=== PATIENT | female | born 1955 | race Caucasian/White ===

== ENCOUNTER 2017-02-22 09:24 | Inpatient (IN) | payer BC ==
[~2017-02-22] VITALS: Ht 172.7 cm; Wt 57.2 kg
[2017-02-22] MEDS ORDERED: ZOLP5TAB (09:30)
[2017-02-22] MEDS ORDERED: MEDR2.5T2 (09:30)
[2017-02-22] MEDS ORDERED: ESTR1TAB (09:30)
--- NOTE | 2017-02-22 11:26 | REP ---
CT Head without contrast HISTORY: Dizziness COMPARISON: None There is no intraparenchymal hemorrhage, acute infarct, mass or midline shift. The ventricular system is normal in appearance. The cortical sulci are dilated consistent with minimal volume loss. There is no extra cerebral collection. There is no fracture. The visualized sinuses are clear. IMPRESSION: Minimal volume loss. Signed by Eddie Saul MD 02/22/2017 11:18 A
[2017-02-22 12:23] LABS: BASO % 0.5 % (0.0-1.0); EOS % 0.6 % (0.0-3.0); LARGE UNSTAINED CELL # 0.1 K/mm3 (0.0-0.4); LARGE UNSTAINED CELL % 2.6 % (0.0-4.0); LYMPH % 22.3 % (24.0-44.0); MEAN CORPUSCULAR HGB CONC 34.5 g/dl (32.0-36.5); MEAN CORPUSCULAR VOLUME 92.8 fl (80.0-96.0); MONO # 0.3 K/mm3 (0.0-0.8); MONO % 6.4 % (0.0-5.0); NEUTROPHILS # 2.9 K/mm3 (1.8-7.7); NEUTROPHILS % 67.6 % (36.0-66.0); PLATELET COUNT, AUTOMATED 236 k/mm3 (150-450); RED CELL DISTRIBUTION WIDTH 12.7 % (11.5-14.5); WHITE BLOOD COUNT 4.4 K/mm3 (4.0-10.0)
--- NOTE | 2017-02-22 12:29 | REP ---
Chest one-view HISTORY: Infarction Comparison: None The lungs are clear. The heart is normal in size. The pulmonary vasculature is normal in appearance. Impression: No acute disease. Signed by Eddie Saul MD 02/22/2017 12:20 P
[2017-02-22 12:31] LABS: ANION GAP 5 MEQ/L (8-16); BLOOD UREA NITROGEN 9 MG/DL (7-18); CALCIUM LEVEL 9.2 MG/DL (8.5-10.1); CARBON DIOXIDE LEVEL 29 MEQ/L (21-32); CHLORIDE LEVEL 105 MEQ/L (98-107); CREATININE FOR GFR 0.99 MG/DL (0.55-1.02); GLOMERULAR FILTRATION RATE > 60.0 (>51); GLUCOSE, FASTING 94 MG/DL (70-105); SODIUM LEVEL 139 MEQ/L (136-145)
[2017-02-22 13:04] LABS: ERYTHROCYTE SEDIMENTATION RATE 4 mm/hr (0-30)
[2017-02-22] MEDS ORDERED: MEDR2.5T2 PO (16:49)
[2017-02-22] MEDS ORDERED: ESTR1TAB PO (16:49)
[2017-02-22] MEDS ORDERED: AMBI10TA PO (16:49)
[2017-02-22] MEDS: **hydrALAZINE HCL** 25 MG TAB PO SCH (18:00)
[2017-02-22 18:10] LABS: CHOLESTEROL LEVEL 215 MG/DL (<200); TRIGLYCERIDES LEVEL 77 MG/DL (<150)
--- NOTE | 2017-02-22 18:43 | HPEPDOC ---
General Date of Admission Feb 22, 2017 at 16:49 Chief Complaint The patient is a 61-year-old female admitted with a reason for visit of TIA. Source: Patient Exam Limitations: No limitations Timing/Duration: 4-6 hours Severity: Moderate History of Present Illness Ms. Melvin is a 61-year-old female who appears much younger than her stated age with no significant past medical history who presented with the chief complaint of double vision and lightheadedness that began this morning. The patient states that when she got into her car to start driving around 8 AM to work that she noticed her vision in both eyes gradually becoming double, the patient states that this increased in severity and that she drove to work with complete double vision in both eyes. She states that her vision restored to normal within 30 minutes. The patient states that when she arrived at work 30-45 minutes later she slipped out of her car and acutely became very lightheaded and dizzy. The patient denied loss of consciousness or passing out. She stated that at this point time she called her primary care doctor, Dr. Walker who recommended her come to the emergency department. The patient denies experiencing symptoms like this in the past. She denies any areas or extremities of her body that have been acutely numb, paralyzed or week. The patient did state that when she phoned her to tell him she was coming to the emergency department he noted her speech to be slurred. Patient states she is very active she goes to the gym area 5 times per week and eats very healthy, she has never been hospitalized prior to this. The only medications she takes are hormone replacement therapy for menopause and Ambien at night to sleep, states she sometimes also will take a stool softener for constipation. Patient denied experiencing headache, chest pain, palpitations, shortness of breath or cough. She denies history of fever or chills or muscle aches. She does admit to a "knot" in her stomach that has been present for the past couple weeks, she thinks this is due to her constipation as she not had a bowel movement in the past 2 days. She has never had a history of stroke or heart attack in the past. She states she sees her primary care doctor regularly for checkups and has always been very healthy. 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 Review of Symptoms Constitutional: Reports: Malaise, Denies: Chills, Fever Eyes: Reports: Vision change, Denies: Pain, Conjunctivae inflammation, Eyelid inflammation ENT: Denies: Head Aches Skin: Denies: Rash, Lesions Pulmonary: Denies: Dyspnea, Cough, Pleuritic Chest Pain Cardiovascular: Reports: Lt Headedness, Denies: Chest Pain, Palpitations, Orthopnea, Edema Gastrointestinal: Reports: Constipation, Denies: Nausea, Vomiting, Abdominal Pain, Diarrhea Genitourinary: Denies: Dysuria Musculoskeletal: Denies: Neck Pain Neurological: Reports: Weakness Psych: Reports: Mood Normal Physical Examination General Exam: Positive: Alert, Cooperative, No Acute Distress Eye Exam: Positive: Conjunctiva & lids normal, EOMI, Negative: Sclera icteric, Ptosis ENT Exam: Positive: Atraumatic, Nares Patent Neck Exam: Positive: Supple Chest Exam: Positive: Clear to auscultation, Normal air movement, Negative: Rales, Rhonchi, Wheezing Heart Exam: Positive: Rate Normal, Normal S1, Normal S2, Negative: Gallops, Murmurs Abdomen Exam: Positive: Normal bowel sounds, Soft, Tenderness (some mild tenderness to palpitation in left upper quadrant), Negative: BS Hyperactive, BS Hypoactive Extremity Exam: Positive: Normal pulses, Negative: Clubbing, Cyanosis, Edema Skin Exam: Positive: Nl turgor and temperature Neuro Exam: Positive: Normal Speech, Strength at 5/5 X4 ext, Normal Tone, Sensation Intact, Cranial Nerves 3-12 NL Psych Exam: Positive: Mental status NL Vital Signs Vital Signs Date Time Temp Pulse Resp B/P (MAP) Pulse Ox O2 Delivery O2 Flow Rate FiO2 02/22/17 16:53 174/79 (110) 02/22/17 16:40 64 18 97 4/27/17 11:57 99.3 Room Air Laboratory Data Labs 24H Laboratory Tests 2 02/22/17 11:52: White Blood Count 4.4, Red Blood Count 4.48, Hemoglobin 14.3, Hematocrit 41.6, Mean Corpuscular Volume 92.8, Mean Corpuscular Hemoglobin 32.0, Mean Corpuscular Hemoglobin Concent 34.5, Red Cell Distribution Width 12.7, Platelet Count 236, Neutrophils (%) (Auto) 67.6H, Lymphocytes (%) (Auto) 22.3L, Monocytes (%) (Auto) 6.4H, Eosinophils (%) (Auto) 0.6, Basophils (%) (Auto) 0.5 , Neutrophils # (Auto) 2.9, Lymphocytes # (Auto) 1.0L, Monocytes # (Auto) 0.3, Eosinophils # (Auto) 0.0, Basophils # (Auto) 0.0, Large Unclassified Cells % 2.6 , Large Unclassified Cells # 0.1, Erythrocyte Sedimentation Rate 4, Anion Gap 5L , Glomerular Filtration Rate > 60.0, Blood Urea Nitrogen 9, Creatinine 0.99, Sodium Level 139, Potassium Level 4.0, Chloride Level 105, Carbon Dioxide Level 29, Calcium Level 9.2, Total Creatine Kinase 118, Creatine Kinase MB 1.0, Creatine Kinase MB Relative Index 0.84, Troponin I < 0.02, C-Reactive Protein, Quantitative < 0.30, Triglycerides Level 77, LDL Cholesterol 119.6H, Total Cholesterol 215H, Non-HDL Cholesterol (LDL + VLDL) 135, Total HDL Cholesterol 80 , Cholesterol/HDL Ratio 2.687 02/22/17 12:01: Bedside Glucose (Misc Panel) 83 CBC/BMP Laboratory Tests 02/22/17 11:52 Red Blood Count 4.48, Mean Corpuscular Volume 92.8, Mean Corpuscular Hemoglobin 32.0, Mean Corpuscular Hemoglobin Concent 34.5, Red Cell Distribution Width 12.7 , Neutrophils (%) (Auto) 67.6 H, Lymphocytes (%) (Auto) 22.3 L, Monocytes (%) ( Auto) 6.4 H, Eosinophils (%) (Auto) 0.6, Basophils (%) (Auto) 0.5, Neutrophils # (Auto) 2.9, Lymphocytes # (Auto) 1.0 L, Monocytes # (Auto) 0.3, Eosinophils # (Auto) 0.0, Basophils # (Auto) 0.0, Calcium Level 9.2, Total Creatine Kinase 118 Problems (1) Double vision Status: Acute Response to Treatment: Stable Problem Text: The patient states that her vision is completely restored Will perform hypercoagulable workup Have ordered echo and carotid ultrasound Lipid panel pending Begin aspirin and Lipitor therapy Begin hydralazine for systolic blood pressure over 180 CT scan emergency department negative for ischemic focus Will complete MRI and MRA Continue to monitor (2) TIA (transient ischemic attack) Status: Acute Response to Treatment: Stable Problem Text: The patient states that her vision is completely restored Will perform hypercoagulable workup Have ordered echo and carotid ultrasound Lipid panel pending Begin aspirin and Lipitor therapy Begin hydralazine for systolic blood pressure over 180 CT scan emergency department negative for ischemic focus Will complete MRI and MRA Continue to monitor (3) Constipation Status: Chronic Response to Treatment: Stable Problem Text: Schedule docusate (4) Hypertension Status: Acute Response to Treatment: Stable Problem Text: Patient states that she normally has blood pressure that is normal in the 120s systolic range Patient was noted to have elevated blood pressure 184/88 in the emergency Department will schedule hydralazine 25 every 6 hours with the parameters only to be given if systolic blood pressure is over 180 Continue to monitor (5) DVT prophylaxis Response to Treatment: Stable Problem Text: SCD teds (6) Lightheadedness Plan / VTE VTE Prophylaxis Ordered?: Yes GME ATTESTATION GME ATTESTATION My preceptor for this patient encounter was physically present in the building during the encounter and was fully available. As needed, all aspects of the patient interview, examination, medical decision making process, and medical care plan development were reviewed and approved by the preceptor. Preceptor is aware and concurs with the plan as stated in the body of this note and will attest to such by his/her cosignature. PAL KWAN DO Feb 22, 2017 18:43
--- NOTE | 2017-02-22 19:10 | REPUSA ---
MRI of the brain Clinical history: vision problems. Technique: Multiecho multiplanar MRI images of the brain were obtained before and after administrati on of intravenous gadolinium contrast. Diffusion weighted images with ADC mapping was also obtained. Findings: The ventricles and sulci are symmetric bilaterally. The brain parenchyma demonstrates uniform and nor mal signal on all sequences. There is no midline shift, mass effect, or extra-axial fluid collection. The midline intracranial structures do not demonstrate any gross abnormalities. The cervical cranial junction is intact. The orbits are unremarkable. The visualized paranasal sinuses and mastoid air ce lls are clear. The osseous structures and superficial soft tissues are unremarkable. The vascular str uctures demonstrate appropriate flow voids. Following contrast administration, the vascular structure s enhancing appropriately. No abnormal areas of enhancement are appreciated. Impression: Normal MRI of the Brain.
--- NOTE | 2017-02-22 20:50 | REP ---
CAROTID ULTRASOUND: Real-time ultrasound evaluation and duplex Doppler interrogation of the extracranial carotid vasculature is performed. There is mild plaquing and narrowing in both carotid bulbs extending into the internal and external carotid arteries. Luminal narrowing is less than 50%. There is no evidence of hemodynamically significant stenosis of either internal carotid artery. Normal flow velocities are seen. The vertebral arteries demonstrate normal direction of flow. RIGHT LEFT Peak systolic velocity ICA 113.6 cm/s 80.7 cm/s End diastolic velocity ICA 34.5 cm/s 29.1 cm/s Peak systolic velocity CCA 82.8 cm/s 76.3 cm/s Peak systolic velocity ECA 80.9 cm/s 52.1 cm/s ICA/CCA ratio 1.37 1.06 IMPRESSION: Bilateral luminal narrowing of the internal carotid arteries less than 50%. No evidence of hemodynamically significant stenosis. Signed by Valentin Lopez MD 02/22/2017 07:38 P
[2017-02-22] MEDS ORDERED: zolPIDEM TARTRATE 5 MG TAB PO SCH (21:00)
[2017-02-23 03:00] VITALS: BP 107/75
[2017-02-23 04:00] VITALS: BP 107/55
[2017-02-23] MEDS: **hydrALAZINE HCL** 25 MG TAB PO SCH ×4 (05:44→18:00)
[2017-02-23 07:25] LABS: BASO % 0.3 % (0.0-1.0); EOS # 0.1 K/mm3 (0.0-0.50); EOS % 3.6 % (0.0-3.0); LARGE UNSTAINED CELL # 0.1 K/mm3 (0.0-0.4); LARGE UNSTAINED CELL % 1.5 % (0.0-4.0); LYMPH # 1.2 K/mm3 (1.5-4.5); LYMPH % 29.9 % (24.0-44.0); MEAN CORPUSCULAR HEMOGLOBIN 32.1 pg (27.0-33.0); MEAN CORPUSCULAR VOLUME 91.7 fl (80.0-96.0); MONO # 0.3 K/mm3 (0.0-0.8); MONO % 6.7 % (0.0-5.0); NEUTROPHILS # 2.3 K/mm3 (1.8-7.7); PLATELET COUNT, AUTOMATED 224 k/mm3 (150-450); RED CELL DISTRIBUTION WIDTH 12.6 % (11.5-14.5); WHITE BLOOD COUNT 3.9 K/mm3 (4.0-10.0)
[2017-02-23 07:47] LABS: INR 1.05
[2017-02-23 07:48] LABS: ANION GAP 9 MEQ/L (8-16); BLOOD UREA NITROGEN 9 MG/DL (7-18); CALCIUM LEVEL 8.5 MG/DL (8.5-10.1); CARBON DIOXIDE LEVEL 24 MEQ/L (21-32); CHLORIDE LEVEL 108 MEQ/L (98-107); CREATININE FOR GFR 0.95 MG/DL (0.55-1.02); GLOMERULAR FILTRATION RATE > 60.0 (>51); GLUCOSE, FASTING 95 MG/DL (70-105); POTASSIUM SERUM 3.9 MEQ/L (3.5-5.1); SODIUM LEVEL 141 MEQ/L (136-145)
[2017-02-23 08:00] VITALS: BP 119/83
--- NOTE | 2017-02-23 09:58 | IPNPDOC ---
Subjective Date Seen The patient was seen on 02/23/17. Subjective Chief Complaint/HPI The patient is a 61-year-old female admitted with a reason for visit of TIA. General: Denies: Chills Constitutional: Denies: Chills Eyes: Denies: Pain, Vision change, Conjunctivae inflammation, Eyelid inflammation Skin: Denies: Rash Pulmonary: Denies: Dyspnea, Cough Cardiovascular: Denies: Chest Pain, Palpitations Gastrointestinal: Denies: Nausea, Vomiting, Abdominal Pain Neurological: Denies: Weakness Psych: Reports: Mood Normal Objective Physical Examination General Exam: Positive: Alert, Cooperative, No Acute Distress Eye Exam: Positive: Conjunctiva & lids normal, EOMI, Negative: Sclera icteric, Ptosis ENT Exam: Positive: Atraumatic, Nares Patent Neck Exam: Positive: Supple Chest Exam: Positive: Clear to auscultation, Normal air movement, Negative: Rales, Rhonchi, Wheezing Heart Exam: Positive: Rate Normal, Normal S1, Normal S2, Negative: Gallops, Murmurs Abdomen Exam: Positive: Normal bowel sounds, Soft, Negative: BS Hyperactive, BS Hypoactive, Tenderness (some mild tenderness to palpitation in left upper quadrant) Extremity Exam: Positive: Normal pulses, Negative: Clubbing, Cyanosis, Edema Skin Exam: Positive: Nl turgor and temperature Neuro Exam: Positive: Normal Speech, Strength at 5/5 X4 ext, Normal Tone, Sensation Intact, Cranial Nerves 3-12 NL Psych Exam: Positive: Mental status NL Assessment /Plan Problems (1) Double vision Status: Acute Response to Treatment: Stable Problem Text: The patient states that her vision is completely restored hypercoagulable lab still pending Carotid u/s no hemodynamically significant stenosis Echo ordered Lipid panel-LDL 119 Begin aspirin and Lipitor therapy Begin hydralazine for systolic blood pressure over 180 CT scan & MRI emergency department negative for ischemic focus MRA pending Continue to monitor (2) TIA (transient ischemic attack) Status: Acute Response to Treatment: Stable Problem Text: The patient states that her vision is completely restored neurology consulted-appreciate their recommendations Will perform hypercoagulable workup Have ordered echo and carotid ultrasound Lipid panel pending Begin aspirin and Lipitor therapy Begin hydralazine for systolic blood pressure over 180 CT scan emergency department negative for ischemic focus Will complete MRI and MRA Continue to monitor (3) Lightheadedness Status: Acute Response to Treatment: Stable Problem Text: patient states she feels well we will continue to monitor (4) Constipation Status: Chronic Response to Treatment: Stable Problem Text: Schedule docusate (5) Hypertension Status: Acute Response to Treatment: Stable Problem Text: 119/70, has come down to normal pressures since last evening Patient states that she normally has blood pressure that is normal in the 120s systolic range Patient was noted to have elevated blood pressure 184/88 in the emergency Department will keep hydralazine 25 every 6 hours with the parameters only to be given if systolic blood pressure is over 180 Continue to monitor (6) DVT prophylaxis Response to Treatment: Stable Problem Text: SCD teds Plan/VTE VTE Prophylaxis Ordered?: Yes VS, I&O, 24H, Fishbone Vital Signs/I&O Vital Signs Date Time Temp Pulse Resp B/P (MAP) Pulse Ox O2 Delivery O2 Flow Rate FiO2 02/23/17 06:30 Room Air 02/23/17 05:44 119/70 02/23/17 04:00 98.7 67 20 99 I&O- Last 24 Hours up to 6 AM 02/23/17 06:00 Intake Total 240 ml Output Total 0 ml Balance 240 ml Laboratory Data 24H LABS Laboratory Tests 2 02/22/17 11:52: White Blood Count 4.4, Red Blood Count 4.48, Hemoglobin 14.3, Hematocrit 41.6, Mean Corpuscular Volume 92.8, Mean Corpuscular Hemoglobin 32.0, Mean Corpuscular Hemoglobin Concent 34.5, Red Cell Distribution Width 12.7, Platelet Count 236, Neutrophils (%) (Auto) 67.6H, Lymphocytes (%) (Auto) 22.3L, Monocytes (%) (Auto) 6.4H, Eosinophils (%) (Auto) 0.6, Basophils (%) (Auto) 0.5 , Neutrophils # (Auto) 2.9, Lymphocytes # (Auto) 1.0L, Monocytes # (Auto) 0.3, Eosinophils # (Auto) 0.0, Basophils # (Auto) 0.0, Large Unclassified Cells % 2.6 , Large Unclassified Cells # 0.1, Erythrocyte Sedimentation Rate 4, Anion Gap 5L , Glomerular Filtration Rate > 60.0, Blood Urea Nitrogen 9, Creatinine 0.99, Sodium Level 139, Potassium Level 4.0, Chloride Level 105, Carbon Dioxide Level 29, Calcium Level 9.2, Total Creatine Kinase 118, Creatine Kinase MB 1.0, Creatine Kinase MB Relative Index 0.84, Troponin I < 0.02, C-Reactive Protein, Quantitative < 0.30, Triglycerides Level 77, LDL Cholesterol 119.6H, Total Cholesterol 215H, Non-HDL Cholesterol (LDL + VLDL) 135, Total HDL Cholesterol 80 , Cholesterol/HDL Ratio 2.687 02/22/17 12:01: Bedside Glucose (Misc Panel) 83 02/23/17 07:08: White Blood Count 3.9L, Red Blood Count 4.27, Hemoglobin 13.7, Hematocrit 39.2, Mean Corpuscular Volume 91.7, Mean Corpuscular Hemoglobin 32.1, Mean Corpuscular Hemoglobin Concent 35.0, Red Cell Distribution Width 12.6, Platelet Count 224, Neutrophils (%) (Auto) 58.0, Lymphocytes (%) (Auto) 29.9, Monocytes ( %) (Auto) 6.7H, Eosinophils (%) (Auto) 3.6H, Basophils (%) (Auto) 0.3, Neutrophils # (Auto) 2.3, Lymphocytes # (Auto) 1.2L, Monocytes # (Auto) 0.3, Eosinophils # (Auto) 0.1, Basophils # (Auto) 0.0, Large Unclassified Cells % 1.5 , Large Unclassified Cells # 0.1, Anion Gap 9, Glomerular Filtration Rate > 60.0 , Blood Urea Nitrogen 9, Creatinine 0.95, Sodium Level 141, Potassium Level 3.9 , Chloride Level 108H, Carbon Dioxide Level 24, Calcium Level 8.5 02/23/17 07:09: Prothrombin Time 13.8, Prothromb Time International Ratio 1.05, Activated Partial Thromboplast Time 32.0 CBC/BMP Laboratory Tests 02/22/17 11:52 Red Blood Count 4.48, Mean Corpuscular Volume 92.8, Mean Corpuscular Hemoglobin 32.0, Mean Corpuscular Hemoglobin Concent 34.5, Red Cell Distribution Width 12.7 , Neutrophils (%) (Auto) 67.6 H, Lymphocytes (%) (Auto) 22.3 L, Monocytes (%) ( Auto) 6.4 H, Eosinophils (%) (Auto) 0.6, Basophils (%) (Auto) 0.5, Neutrophils # (Auto) 2.9, Lymphocytes # (Auto) 1.0 L, Monocytes # (Auto) 0.3, Eosinophils # (Auto) 0.0, Basophils # (Auto) 0.0, Calcium Level 9.2, Total Creatine Kinase 118 02/23/17 07:08 Red Blood Count 4.27, Mean Corpuscular Volume 91.7, Mean Corpuscular Hemoglobin 32.1, Mean Corpuscular Hemoglobin Concent 35.0, Red Cell Distribution Width 12.6 , Neutrophils (%) (Auto) 58.0, Lymphocytes (%) (Auto) 29.9, Monocytes (%) (Auto ) 6.7 H, Eosinophils (%) (Auto) 3.6 H, Basophils (%) (Auto) 0.3, Neutrophils # ( Auto) 2.3, Lymphocytes # (Auto) 1.2 L, Monocytes # (Auto) 0.3, Eosinophils # ( Auto) 0.1, Basophils # (Auto) 0.0, Calcium Level 8.5 GME ATTESTATION GME ATTESTATION My preceptor for this patient encounter was physically present in the building during the encounter and was fully available. As needed, all aspects of the patient interview, examination, medical decision making process, and medical care plan development were reviewed and approved by the preceptor. Preceptor is aware and concurs with the plan as stated in the body of this note and will attest to such by his/her cosignature. ATTENDING NOTE I have both independently examined this patient as well as reviewed the note. I have discussed in detail with the resident the findings and plan of treatment as documented in the residents note. I will continue to follow the patient and offer further guidance to the patients care as necessary during this hospital stay. PAL Ortega MD, DO Feb 23, 2017 09:57 DARBY CONTRERAS MD Feb 24, 2017 07:31
--- NOTE | 2017-02-23 10:04 | REP ---
MRA BRAIN WITHOUT CONTRAST: HISTORY: TIAs 3D [id number] Mr angiography was performed at the level of the [place]. There is no aneurysm, arteriovenous malformation or atherosclerotic lesion. 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 The major intracranial vessels are patent. The right vertebral artery appears to terminate in the right posterior inferior cerebellar artery. The left vertebral artery is dominant. IMPRESSION: Normal MRA brain. Signed by Eddie Saul MD 02/23/2017 10:07 A
[2017-02-23] MEDS: SENOKOT S TAB PO SCH (10:36)
[2017-02-23] MEDS: HEPARIN SOD (PORCINE) 5000 UNITS/ML VIAL SQ SCH ×2 (10:36→21:45)
[2017-02-23] MEDS: ATORVASTATIN 20 MG TAB PO SCH (10:36)
[2017-02-23] MEDS: ASPIRIN 81 MG CHEW TABLET PO SCH (10:37)
[2017-02-23 12:00] VITALS: BP 144/79
[2017-02-23 16:00] VITALS: BP 119/59
[2017-02-23 20:00] VITALS: BP 151/74
[2017-02-23] MEDS ORDERED: zolPIDEM TARTRATE 5 MG TAB PO SCH (21:00)
[2017-02-24] VITALS: BP 145/73
[2017-02-24 04:00] VITALS: BP 124/52
[2017-02-24 06:00] VITALS: BP 122/69
[2017-02-24] MEDS: **hydrALAZINE HCL** 25 MG TAB PO SCH ×2 (06:00)
[2017-02-24 07:37] LABS: BASO % 0.5 % (0.0-1.0); EOS # 0.1 K/mm3 (0.0-0.50); LARGE UNSTAINED CELL # 0.1 K/mm3 (0.0-0.4); LYMPH # 1.4 K/mm3 (1.5-4.5); LYMPH % 31.9 % (24.0-44.0); MEAN CORPUSCULAR HEMOGLOBIN 30.4 pg (27.0-33.0); MEAN CORPUSCULAR HGB CONC 32.9 g/dl (32.0-36.5); MEAN CORPUSCULAR VOLUME 92.4 fl (80.0-96.0); MONO # 0.3 K/mm3 (0.0-0.8); MONO % 6.7 % (0.0-5.0); NEUTROPHILS # 2.2 K/mm3 (1.8-7.7); PLATELET COUNT, AUTOMATED 232 k/mm3 (150-450); RED CELL DISTRIBUTION WIDTH 12.8 % (11.5-14.5)
[2017-02-24 07:56] LABS: ANION GAP 6 MEQ/L (8-16); BLOOD UREA NITROGEN 12 MG/DL (7-18); CALCIUM LEVEL 8.5 MG/DL (8.5-10.1); CARBON DIOXIDE LEVEL 27 MEQ/L (21-32); CHLORIDE LEVEL 106 MEQ/L (98-107); CREATININE FOR GFR 0.96 MG/DL (0.55-1.02); GLOMERULAR FILTRATION RATE > 60.0 (>51); GLUCOSE, FASTING 91 MG/DL (70-105); SODIUM LEVEL 139 MEQ/L (136-145)
[2017-02-24 08:00] VITALS: BP 138/75
[2017-02-24] MEDS: HEPARIN SOD (PORCINE) 5000 UNITS/ML VIAL SQ SCH (08:21)
[2017-02-24] MEDS: SENOKOT S TAB PO SCH (08:22)
[2017-02-24] MEDS: ATORVASTATIN 20 MG TAB PO SCH (08:22)
[2017-02-24] MEDS: ASPIRIN 81 MG CHEW TABLET PO SCH (08:22)
--- NOTE | 2017-02-24 08:29 | ECGEPIP ---
Stationary ECG Study [facility] - ED Test Date: 2017-02-22 Pat Name: OVI TEIXEIRA Department: Room: - Gender: F [employer]: [employer] : 1955 Requested By: Dewayne Carmona Order Number: [id number] Reading MD: Elayne Butts Measurements Intervals [place] Rate: 58 P: 48 [place]: 158 QRS: 15 QRSD: 103 T: 56 QT: 428 QTc: 423 Interpretive Statements SINUS BRADYCARDIA DELAYED R PROGRESSION SIMILAR 07/22/13 Electronically Signed On 02-24-2017 8:29:27 EDT by Elayne Butts
[2017-02-24] MEDS ORDERED: ASPI81TA PO (10:38)
[2017-02-24] MEDS ORDERED: ATOR1TAB21 PO (10:38)
[2017-02-24] MEDS ORDERED: ATOR40TA PO (10:55)
--- NOTE | 2017-02-24 13:45 | DS.PDOC ---
Discharge Summary General Date of Admission Feb 22, 2017 at 16:49 Date of Discharge 02-24-17 Discharge Summary PROCEDURES PERFORMED DURING STAY: None ADMITTING DIAGNOSES: 1. Double vision 2. TIA 3. Constipation 4. Hypertension DISCHARGE DIAGNOSES: 1. TIA 2. Constipation 3. Hypertension COMPLICATIONS/CHIEF COMPLAINT: Blurred vision, dizziness. TIA. HISTORY OF PRESENT ILLNESS: Ms. Melvin is a 61-year-old female who appears much younger than her stated age with no significant past medical history who presented to the ED with the chief complaint of double vision, slurred speech and lightheadedness that began the morning of 02-22-17. HOSPITAL COURSE: During the course of the hospital stay the patient received numerous imaging studies as part of TIA, hypercoagulable workup. The patient received head CT, brain MRI, vascular carotid duplex ultrasound, brain MRA and chest x-ray. All of the aforementioned imaging studies were benign. The patient was treated with aspirin, atorvastatin, heparin, Colace for intermittent constipation and Ambien to help her sleep. Her blood pressure was noted to be elevated upon presentation reaching 175/78, she stated she has never had high blood pressure and throughout the course of the stay and began to normalize back into the 120s over 60s range, on the day of discharge it was 138/75. Hydralazine 25 mg every 6 hours was scheduled but only to be given if systolic blood pressure was greater than 180. Lipid panel revealed LDL cholesterol 119.6 and total cholesterol 215. She also received echocardiogram and after speaking to Dr. Juan who read it on the day of discharge, preliminary report was normal, recommend that primary care doctor follow-up with final report. On the day of discharge the patient reported no further episodes of blurred vision or lightheadedness since presentation, she felt great and was happy to be going home. She understood that she should follow with neurology and primary care doctor within 1 week of discharge and if she had any re-occurence of her symptoms to return to ED. She verbalizied understanding and had no further questions. DISCHARGE MEDICATIONS: Please see below. ALLERGIES: Please see below. PHYSICAL EXAMINATION ON DISCHARGE: VITAL SIGNS: Please see below. GENERAL: Comfortable laying in bed at 45 incline, pleasant, conversant, in no acute distress HEENT: NCAT, EOMI, nares patent bilaterally, moist mucous membranes. NECK: Supple CARDIOVASCULAR EXAMINATION: Normal S1, S2, no murmurs, rubs, gallops appreciated. NSR. RESPIRATORY EXAMINATION: Good air expansion and effort bilaterally, no wheezing , rhonchi, rales, crackles appreciated. CTA bilaterally ABDOMINAL EXAMINATION: Soft, nondistended, no rebound rigidity or guarding appreciated. NABS 4. No organomegaly. EXTREMITIES: Nails without pitting or clubbing, no edema, cyanosis appreciated SKIN: Intact NEUROLOGICAL EXAMINATION: Cranial nerve II through XII intact, sensation and strength preserved in upper and lower extremities, no focal deficits appreciated. PSYCHIATRIC EXAMINATION: Normal affect and appropriate demeanor LABORATORY DATA: Please see below. IMAGIN02/22/2017 chest x-ray Impression: No acute disease. 02/22/[address] There is no intraparenchymal hemorrhage, acute infarct, mass or midline shift. The ventricular system is normal in appearance. The cortical sulci are dilated consistent with minimal volume loss. There is no extra cerebral collection. There is no fracture. The visualized sinuses are clear. IMPRESSION: Minimal volume loss. 02/22/2017 brain MRI Technique: Multiecho multiplanar MRI images of the brain were obtained before and after administration of intravenous gadolinium contrast. Diffusion weighted images with ADC mapping was also obtained. Findings: The ventricles and sulci are symmetric bilaterally. The brain parenchyma demonstrates uniform and normal signal on all sequences. There is no midline shift, mass effect, or extra-axial fluid collection. The midline intracranial structures do not demonstrate any gross abnormalities. The cervical cranial junction is intact. The orbits are unremarkable. The visualized paranasal sinuses and mastoid air cells are clear. The osseous structures and superficial soft tissues are unremarkable. The vascular structures demonstrate appropriate flow voids. Following contrast administration, the vascular structures enhancing appropriately. No abnormal areas of enhancement are appreciated. Impression: Normal MRI of the Brain. 02/22/2017 carotid ultrasound IMPRESSION: Bilateral luminal narrowing of the internal carotid arteries less than 50%. No evidence of hemodynamically significant stenosis. 02/15/2017 brain MRA There is no aneurysm, arteriovenous malformation or atherosclerotic lesion. 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 The major intracranial vessels are patent. The right vertebral artery appears to terminate in the right posterior inferior cerebellar artery. The left vertebral artery is dominant. IMPRESSION: Normal MRA brain. PROGNOSIS: Stable ACTIVITY: As tolerated DIET: Heart healthy DISCHARGE PLAN: Home, follow up with primary care doctor and neurology within 5- 7 days of discharge DISPOSITION: 01 Home, Self-Care. DISCHARGE INSTRUCTIONS: 1. Follow up with PCP within 5-7 days of discharge 2. Follow-up with neurology within 5-7 days of discharge ITEMS TO FOLLOWUP ON ON OUTPATIENT: 1. Follow up with PCP within 5-7 days of discharge 2. Follow-up with neurology within 5-7 days of discharge DISCHARGE CONDITION: Stable TIME SPENT ON DISCHARGE: Greater than 20 minutes. Vital Signs/I&Os Vital Signs Date Time Temp Pulse Resp B/P (MAP) Pulse Ox O2 Delivery O2 Flow Rate FiO2 02/24/17 08:00 97.6 63 18 138/75 (96) 99 Room Air I&O- Last 24 Hours up to 6 AM 02/24/17 06:00 Intake Total 780 ml Output Total 0 ml Balance 780 ml Laboratory Data Labs 24H Laboratory Tests 2 02/24/17 07:21: White Blood Count 4.0, Red Blood Count 4.73, Hemoglobin 14.4, Hematocrit 43.7, Mean Corpuscular Volume 92.4, Mean Corpuscular Hemoglobin 30.4, Mean Corpuscular Hemoglobin Concent 32.9, Red Cell Distribution Width 12.8, Platelet Count 232, Neutrophils (%) (Auto) 56.0, Lymphocytes (%) (Auto) 31.9, Monocytes ( %) (Auto) 6.7H, Eosinophils (%) (Auto) 3.0, Basophils (%) (Auto) 0.5, Neutrophils # (Auto) 2.2, Lymphocytes # (Auto) 1.4L, Monocytes # (Auto) 0.3, Eosinophils # (Auto) 0.1, Basophils # (Auto) 0.0, Large Unclassified Cells % 2.0 , Large Unclassified Cells # 0.1, Anion Gap 6L, Glomerular Filtration Rate > 60.0, Blood Urea Nitrogen 12, Creatinine 0.96, Sodium Level 139, Potassium Level 4.0, Chloride Level 106, Carbon Dioxide Level 27, Calcium Level 8.5 CBC/BMP Laboratory Tests 02/24/17 07:21 Red Blood Count 4.73, Mean Corpuscular Volume 92.4, Mean Corpuscular Hemoglobin 30.4, Mean Corpuscular Hemoglobin Concent 32.9, Red Cell Distribution Width 12.8 , Neutrophils (%) (Auto) 56.0, Lymphocytes (%) (Auto) 31.9, Monocytes (%) (Auto ) 6.7 H, Eosinophils (%) (Auto) 3.0, Basophils (%) (Auto) 0.5, Neutrophils # ( Auto) 2.2, Lymphocytes # (Auto) 1.4 L, Monocytes # (Auto) 0.3, Eosinophils # ( Auto) 0.1, Basophils # (Auto) 0.0, Calcium Level 8.5 Discharge Medications Scheduled Aspirin (Aspirin Low Strength) 81 Mg Chw, 81 MG PO DAILY Atorvastatin Calcium (Atorvastatin Calcium) 40 Mg Tab, 40 MG PO DAILY Zolpidem Tartrate (Ambien) 10 Mg Tab, 10 MG PO QHS, (Reported) Allergies Coded Allergies: No Known Allergies (Unverified , 08/06/13) GME ATTESTATION GME ATTESTATION My preceptor for this patient encounter was physically present in the building during the encounter and was fully available. As needed, all aspects of the patient interview, examination, medical decision making process, and medical care plan development were reviewed and approved by the preceptor. Preceptor is aware and concurs with the plan as stated in the body of this note and will attest to such by his/her cosignature. ATTENDING NOTE I have both independently examined this patient as well as reviewed the note. I have discussed in detail with the resident the findings and plan of treatment as documented in the residents note. I will continue to follow the patient and offer further guidance to the patients care as necessary during this hospital stay. PAL Ortega DO Feb 24, 2017 13:45 DARBY CONTRERAS MD Feb 25, 2017 06:51
--- NOTE | 2017-02-24 15:07 | CR ---
DATE OF CONSULTATION: 02/23/2017 REFERRING PHYSICIAN: Zayda Che MD REASON FOR CONSULTATION: Double vision and dizziness. HISTORY OF PRESENT ILLNESS: Patient is a 61-year-old woman who was at her baseline state of health until yesterday morning when she was driving to work and suddenly felt double vision, which would go away by closing one eye. She felt dizziness and lightheadedness. She was able to continue to drive to work somehow. Her symptoms lasted for 30-45 minutes. She felt dizziness and lightheadedness when she was getting out of her car. She denies any numbness or weakness of her arms and legs. She denies any difficulty walking. She denies any headache, neck pain, back pain, dysphagia, dysarthria, diplopia or urinary incontinence. She does not have any children. She denies any miscarriages or stroke-like symptoms in the past. She has been on hormone replacement therapy for the last 3 years. PAST MEDICAL HISTORY: Insomnia. CURRENT MEDICATIONS: - estrogen 1 mg by mouth daily - medroxyprogesterone 2.5 mg by mouth daily - Ambien 10 mg by mouth at bedtime SOCIAL HISTORY: She denies smoking, alcohol or illicit drugs. She works for the [employer]. ALLERGIES: None. FAMILY HISTORY: Mother had a fainting spell and had coronary artery disease. Sister and aunt both had breast cancer. REVIEW OF SYSTEMS: All systems were reviewed and were found to be noncontributory except as mentioned in the history present illness. PHYSICAL EXAMINATION: Blood pressure 144/79, pulse 99, respiratory 16. Heart regular rate and rhythm. Lungs clear to auscultation. No pedal edema. Peripheral pulses are palpable. Ear, nose and throat examination is within normal limits. No gross musculoskeletal or skin abnormalities. She is awake, alert, oriented to place, person and time. Normal speech comprehension and repetition. Extraocular muscles are intact. No facial weakness. Tongue and uvula are midline. 5/5 strength in all four extremities. Deep tendon flexes 2+ throughout. She has normal light touch, pinprick, vibration sensation in her arms and legs. No dysmetria or ataxia. DIAGNOSTIC STUDIES: Her MRI and MRA brain were within normal limits. Her carotid ultrasound less showed less than 50% bilateral carotid artery stenosis. ASSESSMENT: 1. Suspected transient ischemic attack. 2. Use of hormone replacement therapy. PLAN: 1. Continue telemetry monitoring. 2. Echocardiogram report is pending. 3. We have ordered blood tests to rule out vasculopathy and coagulopathy. 4. Aspirin 81 mg by mouth daily, Lipitor 20 mg by mouth daily. 5. She should discontinue hormone replacement therapy. 6. Followup with our office in two weeks after hospital discharge.
--- NOTE | 2017-02-24 15:09 | ECHO ---
DATE OF SERVICE: 02/23/2017 REFERRING PROVIDER: Dr. Gloria Ayala PATIENT LOCATION: Emergency department, room 20. REASON FOR THE ECHOCARDIOGRAM: TIA. 2D MEASUREMENTS: IVS: 1.0 cm LV: 3.6 cm LVPW: 1.0 cm LA: 2.4 cm Aorta: 3.3 cm IVC: 1.5 cm DOPPLER MEASUREMENTS: Peak velocity across the aortic valve: 0.8 m/s Peak velocity across the LVOT: 0.7 m/s Mitral E: 0.76 Mitral A: 0.52 with a ratio of 1.5 Maximum tricuspid valve velocity: 2.2 m/s 2D COMMENTS: 1. Normal left ventricular size, wall thickness, and normal global left ventricular systolic function. The estimated left ventricular systolic ejection fraction is 60-65%. 2. Normal left atrium. The right atrium and the right ventricle appear to be normal on limited views. 3. The atrial septum appeared to be normal without evidence of defect or shunt. 4. Normal aortic root. 5. No pericardial effusion seen. 6. The aortic valve, mitral valve, and tricuspid valve appear to be normal. The pulmonic valve appeared to be normal in limited views. The proximal pulmonary artery branches were not well visualized. 7. The inferior vena cava was normal in size, central venous pressure is most likely normal. DOPPLER: It detects trace tricuspid regurgitation. The calculated pulmonary artery systolic pressure was normal. IMPRESSION: 1. Normal global left ventricular systolic and diastolic function. 2. Trace tricuspid regurgitation with a normal calculated pulmonary artery systolic pressure. MTDD
== END 2017-02-24 12:00 | disposition home or self-care (01) | DRG 47 ==
LOC: M ED 11:47 → M ED INP 16:49
PROVIDERS: ADMIT Internal Medicine; ATTEND Hospitalist
DX: G45.9 Transient cerebral ischemic attack, unspecified (principal); I10 Essential (primary) hypertension; H53.2 Diplopia; K59.00 Constipation, unspecified; Z79.899 Other long term (current) drug therapy; Z78.0 Asymptomatic menopausal state; Z80.3 Family history of malignant neoplasm of breast; Z82.49 Family history of ischemic heart disease and other diseases of the circulatory system; Z82.3 Family history of stroke

== ENCOUNTER → 2017-06-04 | Outpatient (CLI) | payer BC ==
[~2017-06-04] MED LIST: AMBI10TA PO; ASPI81TA PO; ATOR1TAB21 PO; ATOR40TA75 PO; ESTR1TAB; ESTR1TAB PO; MEDR1TAB2; MEDR1TAB2 PO; ZOLP5TAB
--- NOTE | 2017-06-04 11:42 | REPMRS ---
Patient History The patient states she had a clinical breast exam in March 2017.Patient is postmenopausal and is nulliparous. Family history of breast cancer in sister at age 45 and breast cancer in paternal aunt at age 55. Took hormonal contraceptives for 3 years. Taking estrogen for 1 year 1 month. Took progesterone for 1 month. Digital Mammo Screening Bilat: June 04, 2017 - Exam #: [id number] Bilateral CC and MLO view(s) were taken. Technologist: Coleen Palomares, Technologist Prior study comparison: May 26, 2016, bilateral digital mammo screening bilat performed at [facility]. May 11, 2015, bilateral digital mammo screening bilat performed at [facility]. FINDINGS: The breast tissue is heterogeneously dense. This may lower the sensitivity of mammography. There has been no change in the appearance of the mammogram from the prior studies. There is a moderate amount of residual fibroglandular tissue which is fairly symmetric. There is no interval development of dominant mass, areas of architectural distortion, or clustered microcalcification typical of malignancy. ASSESSMENT: BI-RADS/ACR category 1 mammogram. Negative. Recommendation Routine screening mammogram in 1 year (for women over age 40). This mammogram was interpreted with the aid of an FDA-approved computer-aided dectection system. Electronically Signed By: Valentin Lopez MD 06/04/17 [id number]
== END ==
LOC: M RAD 09:57
PROVIDERS: ATTEND Family Medicine
DX: Z12.31 Encounter for screening mammogram for malignant neoplasm of breast (principal); Z78.0 Asymptomatic menopausal state; Z92.0 Personal history of contraception

== ENCOUNTER → 2017-08-17 | Outpatient (CLI) | payer BC ==
[2017-08-17 08:30] LABS: BASO % 0.9 % (0.0-1.0); EOS # 0.1 10^3/uL (0.0-0.50); LYMPH # 1.2 10^3/uL (1.5-4.5); LYMPH % 35.3 % (24.0-44.0); MEAN CORPUSCULAR HEMOGLOBIN 30.4 pg (27.0-33.0); MEAN CORPUSCULAR HGB CONC 33.1 g/dl (32.0-36.5); MEAN CORPUSCULAR VOLUME 91.9 fl (80.0-96.0); MONO # 0.3 10^3/uL (0.0-0.8); MONO % 8.8 % (0.0-5.0); NEUTROPHILS # 1.8 10^3/uL (1.8-7.7); PLATELET COUNT, AUTOMATED 227 10^3/uL (150-450); RED CELL DISTRIBUTION WIDTH 12.8 % (11.5-14.5); WHITE BLOOD COUNT 3.5 10^3/uL (4.0-10.0)
[2017-08-17 10:04] LABS: ALBUMIN 4.3 GM/DL (3.2-5.2); ALKALINE PHOSPHATASE 63 U/L (45-117); ALT/SGPT 31 U/L (12-78); ANION GAP 6 MEQ/L (8-16); AST/SGOT 20 U/L (15-37); BILIRUBIN,TOTAL 0.7 MG/DL (0.2-1.0); BLOOD UREA NITROGEN 11 MG/DL (7-18); CALCIUM LEVEL 9.4 MG/DL (8.8-10.2); CARBON DIOXIDE LEVEL 29 MEQ/L (21-32); CHLORIDE LEVEL 105 MEQ/L (98-107); GLOMERULAR FILTRATION RATE > 60.0 (>45); GLUCOSE, FASTING 90 MG/DL (80-110); POTASSIUM SERUM 4.3 MEQ/L (3.5-5.1); SODIUM LEVEL 140 MEQ/L (136-145); TOTAL PROTEIN 7.6 GM/DL (6.4-8.2)
== END ==
LOC: M LAB 08:14
PROVIDERS: ATTEND Psychiatry & Neurology Neurology
DX: Z13.1 Encounter for screening for diabetes mellitus (principal); Z13.29 Encounter for screening for other suspected endocrine disorder

== ENCOUNTER → 2018-10-07 | Outpatient (CLI) | payer BC | LOC: M RAD 16:08 | DX: Z12.31 Encounter for screening mammogram for malignant neoplasm of breast (principal); Z80.3 Family history of malignant neoplasm of breast; N60.31 Fibrosclerosis of right breast; N60.32 Fibrosclerosis of left breast | CPT/HCPCS: 77067 ==

== ENCOUNTER 2019-07-11 06:36 | Day surgery (SDC) | payer BC ==
[~2019-07-11] VITALS: Ht 172.7 cm; Wt 56.7 kg
[~2019-07-11 06:36] MED LIST changes: +ASPI81CH36 PO; -ASPI81TA PO; +PRAV10TA3 PO
[2019-07-11] MEDS ORDERED: LIDOCAINE 2% INJ 100 MG/5 ML SDV (FOR ANES.) As Ordered ONE (07:12)
[2019-07-11] MEDS ORDERED: PROPOFOL 200 MG/20 ML VIAL As Ordered ONE ×2 (07:12→08:14)
[2019-07-11] MEDS ORDERED: NS 1,000 ML IV ONE (07:45)
--- NOTE | 2019-07-11 08:30 | ROOR ---
Patient Name: Tata Melvin Procedure Date: 07/11/2019 7:57 AM Date of : 1955 Age: 64 Room: [facility] Gender: Female Note Status: Finalized Procedure: Colonoscopy Indications: Screening for colorectal malignant neoplasm Providers: Naveed SEPULVEDA MD Referring MD: JUDY BLUM DO Requesting Provider: Medicines: Monitored Anesthesia Care Complications: No immediate complications. Procedure: Pre-Anesthesia Assessment: - The heart rate, respiratory rate, oxygen saturations, blood pressure, adequacy of pulmonary ventilation, and response to care were monitored throughout the procedure. The Colonoscope was introduced through the anus and advanced to the cecum, identified by appendiceal orifice and ileocecal valve. The colonoscopy was performed without difficulty. The patient tolerated the procedure well. The quality of the bowel preparation was good. Findings: The perianal and digital rectal examinations were normal. A 5 mm polyp was found in the hepatic flexure. The polyp was sessile. The polyp was removed with a cold snare. Resection and retrieval were complete. The colon (entire examined portion) was moderately redundant. The exam was otherwise without abnormality on direct and retroflexion views. Impression: - One 5 mm polyp at the hepatic flexure, removed with a cold snare. Resected and retrieved. - The colon examination was otherwise normal on direct and retroflexion views. Recommendation: - Repeat colonoscopy in 5 years for surveillance. Naveed Sepulveda MD Naveed SEPULVEDA MD 07/11/2019 8:29:30 AM Electronically signed by Naveed SEPULVEDA MD Number of Addenda: 0 Note Initiated On: 07/11/2019 7:57 AM Estimated Blood Loss: Estimated blood loss: none.
[2019-07-11 08:56] VITALS: BP 153/88
== END 2019-07-11 08:57 | disposition home or self-care (01) ==
LOC: M OPP 06:36
PROVIDERS: ATTEND Internal Medicine Gastroenterology
DX: Z12.11 Encounter for screening for malignant neoplasm of colon (principal); D12.3 Benign neoplasm of transverse colon; Q43.8 Other specified congenital malformations of intestine; Z79.82 Long term (current) use of aspirin; Z79.899 Other long term (current) drug therapy

== ENCOUNTER → 2024-02-05 | Outpatient (CLI) | payer MEDICARE, BC ==
[~2024-02-05] MED LIST changes: +ASPI81CH32 PO; -ASPI81CH36 PO
== END ==
LOC: M WHC 08:31
PROVIDERS: ATTEND Nurse Practitioner Family
DX: Z13.820 Encounter for screening for osteoporosis (principal); Z12.31 Encounter for screening mammogram for malignant neoplasm of breast; E78.2 Mixed hyperlipidemia; R73.01 Impaired fasting glucose; E55.9 Vitamin D deficiency, unspecified; M85.89 Other specified disorders of bone density and structure, multiple sites

== ENCOUNTER → 2024-02-05 | Outpatient (CLI) | payer MEDICARE, BC ==
[2024-02-05 14:04] LABS: BASO % 0.5 % (0.0-1.0); EOS # 0.1 10^3/uL (0.0-0.5); HEMATOCRIT 39.1 % (36.0-47.0); HEMOGLOBIN 12.8 g/dl (12.0-15.5); LYMPH # 1.2 10^3/uL (1.5-5.0); LYMPH % 31.4 % (24.0-44.0); MEAN CORPUSCULAR HEMOGLOBIN 30.7 pg (27.0-33.0); MEAN CORPUSCULAR HGB CONC 32.7 g/dl (32.0-36.5); MEAN CORPUSCULAR VOLUME 93.8 fl (80.0-96.0); MONO # 0.4 10^3/uL (0.0-0.8); NEUTROPHILS % 54.8 % (36.0-66.0); PLATELET COUNT, AUTOMATED 226 10^3/uL (150-450); RED BLOOD COUNT 4.17 10^6/uL (4.00-5.40); WHITE BLOOD COUNT 3.7 10^3/uL (4.0-10.0)
[2024-02-05 14:39] LABS: ALBUMIN 4.2 G/DL (3.2-5.2); ALKALINE PHOSPHATASE 63 U/L (46-116); ALT/SGPT 17 U/L (7.0-40); AST/SGOT 18 U/L (<34); BILIRUBIN,TOTAL 0.6 MG/DL (0.3-1.2); BLOOD UREA NITROGEN 16 MG/DL (9-23); CALCIUM LEVEL 9.7 MG/DL (8.3-10.6); CARBON DIOXIDE LEVEL 29 MMOL/L (20-31); CHLORIDE LEVEL 104 MMOL/L (98-107); CHOLESTEROL LEVEL 169 MG/DL (<200); CHOLESTEROL RISK RATIO 2.43 (<5); CREATININE FOR GFR 0.94 MG/DL (0.55-1.30); GLOMERULAR FILTRATION RATE > 60.0 (>45); GLUCOSE, FASTING 88 MG/DL (74-106); HDL CHOLESTEROL 69.5 MG/DL (>40); LDL CHOLESTEROL 90.3 MG/DL (<100); NON-HDL-C 99.5 MG/DL; POTASSIUM SERUM 4.3 MMOL/L (3.5-5.1); SODIUM LEVEL 139 MMOL/L (136-145); TOTAL PROTEIN 6.6 G/DL (5.7-8.2); TRIGLYCERIDES LEVEL 46 MG/DL (<150)
[2024-02-05 14:40] LABS: FREE T4 1.04 NG/DL (0.89-1.76)
[2024-02-05 15:25] LABS: THYROID STIMULATING HORMONE 0.699 uIU/ML (0.55-4.78)
[2024-02-05 15:26] LABS: TOTAL 25(OH) VITAMIN D 39.2 NG/ML (20.0-100.0)
[2024-02-05 15:38] LABS: HEMOGLOBIN A1c 5.3 % (4.0-6.0)
== END ==
LOC: M PLALAB 09:50
PROVIDERS: ATTEND Nurse Practitioner Family
DX: E78.2 Mixed hyperlipidemia (principal); R73.01 Impaired fasting glucose; E55.9 Vitamin D deficiency, unspecified

== ENCOUNTER → 2024-03-12 | Outpatient (CLI) | payer MEDICARE, BC | LOC: M WHC 10:02 | PROVIDERS: ATTEND Nurse Practitioner Family | DX: R92.8 Other abnormal and inconclusive findings on diagnostic imaging of breast (principal) | CPT/HCPCS: 77065; G0279 ==

== ENCOUNTER → 2024-09-16 | Outpatient (CLI) | payer MEDICARE, BC | LOC: M WHC 08:58 | PROVIDERS: ATTEND Nurse Practitioner Family | DX: Z12.31 Encounter for screening mammogram for malignant neoplasm of breast (principal); Z53.9 Procedure and treatment not carried out, unspecified reason ==

== ENCOUNTER 2024-12-18 08:41 | Day surgery (SDC) | payer MEDICARE, BC ==
[~2024-12-18] VITALS: Ht 170.2 cm; Wt 56.2 kg
[~2024-12-18 08:41] MED LIST changes: +LIDOCAINE 2% 100MG/5ML SDV (FOR ANES.) As Ordered ONE; +propofoL 200 MG/20 ML VIAL As Ordered ONE
[2024-12-18] MEDS ORDERED: GLYCOPYRROLATE INJ 0.2 MG/ML 2 ML VIAL As Ordered ONE (08:43)
[2024-12-18 10:55] VITALS: TEMP 97.2
[2024-12-18 11:15] VITALS: BP 136/68; O2SAT 100
== END 2024-12-18 11:18 | disposition home or self-care (01) ==
LOC: M OPP 08:41
PROVIDERS: ATTEND Internal Medicine Gastroenterology
DX: Z12.11 Encounter for screening for malignant neoplasm of colon (principal); D12.3 Benign neoplasm of transverse colon; K64.8 Other hemorrhoids; Q43.8 Other specified congenital malformations of intestine; Z86.0100 Personal history of colon polyps, unspecified; Z79.82 Long term (current) use of aspirin; Z79.899 Other long term (current) drug therapy; Z86.73 Personal history of transient ischemic attack (TIA), and cerebral infarction without residual deficits

== ENCOUNTER → 2025-07-06 | Outpatient (REF) | payer MEDICARE, BC ==
[~2025-07-06] MED LIST changes: -AMBI10TA PO; +ASPI-731 PO; -ASPI81CH32 PO; -LIDOCAINE 2% 100MG/5ML SDV (FOR ANES.) As Ordered ONE; -PRAV10TA3 PO; +PRAV10TA43 PO; +ZOLP-533 PO; -propofoL 200 MG/20 ML VIAL As Ordered ONE
== END ==
LOC: M SFHCPLAZ 12:44
PROVIDERS: ATTEND Nurse Practitioner Family
DX: G47.00 Insomnia, unspecified (principal); Z79.899 Other long term (current) drug therapy

== ENCOUNTER → 2025-07-16 | Outpatient (CLI) | payer MEDICARE, BC ==
[~2025-07-16] MED LIST changes: -ZOLP5TAB; +ZOLP5TAB9
[2025-07-16 14:06] LABS: BASO # 0.0 10^3/uL (0.0-0.2); BASO % 0.7 % (0.0-1.0); EOS # 0.1 10^3/uL (0.0-0.5); EOS % 2.3 % (0.0-3.0); LYMPH # 1.1 10^3/uL (1.5-5.0); LYMPH % 26.8 % (24.0-44.0); MONO # 0.5 10^3/uL (0.0-0.8); MONO % 11.0 % (2.0-8.0); NEUTROPHILS # 2.5 10^3/uL (1.5-8.5); NEUTROPHILS % 59.0 % (36.0-66.0); PLATELET COUNT, AUTOMATED 248 10^3/uL (150-450)
[2025-07-16 14:11] LABS: ALT/SGPT 17.0 U/L (7.0-40); AST/SGOT 20.0 U/L (<34); CALCIUM LEVEL 9.6 MG/DL (8.3-10.6); CARBON DIOXIDE LEVEL 28.0 MMOL/L (20-31); CHLORIDE LEVEL 102.0 MMOL/L (98-107); CHOLESTEROL LEVEL 201.0 MG/DL (<200); CHOLESTEROL RISK RATIO 2.43 (<5); CREATININE FOR GFR 0.96 MG/DL (0.55-1.30); GLOMERULAR FILTRATION RATE 64.5 (>45); LDL CHOLESTEROL 104.0 MG/DL (<100); NON-HDL-C 118.4 MG/DL; POTASSIUM SERUM 4.4 MMOL/L (3.5-5.1); SODIUM LEVEL 137.0 MMOL/L (136-145); TRIGLYCERIDES LEVEL 72.0 MG/DL (<150)
[2025-07-16 14:12] LABS: TOTAL 25(OH) VITAMIN D 33.8 NG/ML (20.0-100.0)
[2025-07-16 14:14] LABS: FREE T4 1.22 NG/DL (0.89-1.76)
[2025-07-16 15:27] LABS: ESTIMATED AVERAGE GLUCOSE 114.0 MG/DL (60-110)
== END ==
LOC: M PLALAB 09:47
PROVIDERS: ATTEND Nurse Practitioner Family
DX: M79.672 Pain in left foot (principal); E78.2 Mixed hyperlipidemia; R73.01 Impaired fasting glucose; E55.9 Vitamin D deficiency, unspecified

== ENCOUNTER → 2025-09-18 | Outpatient (CLI) | payer MEDICARE, BC | LOC: M WHC 09:30 | PROVIDERS: ATTEND Nurse Practitioner Family | DX: Z12.31 Encounter for screening mammogram for malignant neoplasm of breast (principal) ==